=== PATIENT | female | born 1985 | race African-American/Black ===

== ENCOUNTER → 2024-12-30 15:47 | Outpatient (CLI) | payer OTHER, SELFPAY | PROVIDERS: Visit Provider Chiropractor | DX: R30.0 Dysuria (principal); N89.8 Other specified noninflammatory disorders of vagina | CPT/HCPCS: 87086; 87210 ==

== ENCOUNTER 2025-01-26 17:28 | Emergency (ER) | payer OTHER, SELFPAY ==
[2025-01-26 17:37] VITALS: BP 181/81; PULSE 88; RESP 18; TEMP 36.4; O2SAT 100; BMI 34.7
[2025-01-26 18:18] LABS: Hematocrit 24.6 % (36-46); Hemoglobin 7.5 g/dL (12.0-16.0); Lymphocytes Absolute Auto 3000 /uL (1100-4500); Mean Corpuscular HGB Conc 30.6 % (30-36); Mean Corpuscular Hemoglobin 15.6 PG (26-34); Mean Corpuscular Volume 50.9 fL (80-100); Platelet Count 464 X10^3/uL (150-400)
[2025-01-26 18:20] LABS: Add Manual Diff / Slide Review SLIDE REVIEW
[2025-01-26 18:23] LABS: Alanine Aminotransferase 15 IU/L (<35); Albumin 4.7 g/dL (3.5-5.0); Albumin Globulin Ratio 1.1 (1.0-2.8); Alkaline Phosphatase 74 U/L (38-126); Blood Urea Nitrogen 9 mg/dL (7-17); Calcium 8.9 mg/dL (8.4-10.2); Carbon Dioxide 18 mmol/L (22-32); Chloride 102 mmol/L (98-107); Estimated Glomerular Filt Rate > 60 mL/min (>60); Globulin 4.3 g/dL (1.7-4.1); Glucose 377 mg/dL (70-99); HEMOLYSIS < 15 (0-50); Potassium 3.4 mmol/L (3.4-5.1); Sodium 132 mmol/L (137-145); Total Protein 9.0 g/dL (6.3-8.2)
[2025-01-26 18:30] LABS: Ketones (Beta-Hydroxybutyrate) 0.24 mmol/L (<0.27)
[2025-01-26 18:31] LABS: Hemoglobin A1C% w Est Avg Glu 10.6 % (4.0-6.0)
[2025-01-26 18:32] LABS: Base Excess VBG -3.3 mmol/L (0-4); HCO3 VBG 21 mmol/L (24-28); Oxygen Saturation VBG 58 % (70-75); PCO2 VBG 33.6 mmHg (45-50); PO2 VBG 30 mmHg (35-45); Total CO2 VBG 20 mmol/L (24-29); pH VBG 7.41 (7.33-7.43)
[2025-01-26] MEDS: INSULIN REGULAR 100 UNIT/ML 3 ML VIAL 10 UNIT IV (18:33)
[2025-01-26 18:42] LABS: Anisocytosis 2+; Microcytosis 3+; Target Cells 1+
--- NOTE | 2025-01-26 18:43 | ED_ITS ---
HPI - Recheck/Abnormal Lab/Rx
--- NOTE | 2025-01-26 18:43 | ED.RECABL ---
HPI - Recheck/Abnormal Lab/Rx General Chief Complaint: Recheck/Abnormal Lab/Rx Stated Complaint: high blood sugar Time Seen by Provider: 01/26/25 18:07 Source: patient Mode of arrival: Ambulatory History of Present Illness HPI narrative: 39-year-old female with recent multiple urinary tract infections that have not cleared up and at walk-in clinic for which glucose was detected sent over here for further evaluation. Patient has never been diagnosed with diabetes and has had increased thirst and increased urination recently also. Patient denies any abdominal pain, nausea, vomiting, weight loss, or increased thirst. Other than what is stated 14 point review of systems negative. Related Data Previous Rx's ?Medication ?Instructions ?Recorded fluconazole 150 mg tablet 150 mg PO Q3D 2 doses #2 tabs 12/30/24 Allergies Allergy/AdvReac Type Severity Reaction Status Date / Time No Known Drug Allergies Allergy Verified 01/26/25 16:38 Review of Systems Review of Systems ROS Unobtainable: All systems reviewed & are unremarkable except as noted in HPI and below Patient History Smoking Status: Never smoker Exam Narrative Exam Narrative: GENERAL: [39] year old patient appears stated age. Well-developed patient, in mild distress. HEAD: Atraumatic. Normocephalic. EYES: Pupils equal round and reactive. Extraocular motions intact. No scleral icterus. No injection or drainage. ENT: Nose without bleeding, purulent drainage. Throat without erythema, tonsillar hypertrophy or exudate. Airway patent. NECK: Trachea midline. Non tender CARDIOVASCULAR: Regular rate and rhythm without murmurs, gallops, or rubs. RESPIRATORY: Clear to auscultation. Breath sounds equal bilaterally. No wheezes, rales, or rhonchi. GASTROINTESTINAL: Abdomen soft, non-tender, nondistended. EXTREMITIES: No edema or joint tenderness. BACK: Nontender without deformity or crepitance. No flank tenderness. NEURO: AOx3. SKIN: No rash or erythema of visible areas Initial Vital Signs Initial Vital Signs: Vital Signs Temperature 97.6 F 01/26/25 17:37 Pulse Rate 88 01/26/25 17:37 Respiratory Rate 18 01/26/25 17:37 Blood Pressure 181/81 H 01/26/25 17:37 Pulse Oximetry 100 01/26/25 17:37 Oxygen Delivery Method Room Air 01/26/25 17:37 Course Orders Ordered: ED Orders 01/26/25 17:52 CBC Auto Diff [Complete Blood Count AUTO DIFF] Stat Comprehensive Metabolic Panel Stat Hemoglobin A1C% w Est Avg Glu Stat Ketones (Beta-Hydroxybutyrate) Stat 01/26/25 17:59 VBG [Venous Blood Gas] STAT 01/26/25 18:25 Venous Blood Gas Routine Sodium Chloride (Normal Saline 0.9%) 2,000 mls @ 1,000 mls/hr IV NOW ONE Stop: 01/26/25 20:14 Discontinued Medications Insulin Human Regular (Insulin Regular 100 Unit/Ml 3 Ml Vial) 10 unit IV NOW ONE Stop: 01/26/25 18:06 Last Admin: 01/26/25 18:33 Dose: 8 unit Documented By: MAYELA Co-signed By: ANNA Vital Signs Vital signs: Vital Signs - 8 hr 01/26/25 17:37 Temperature 97.6 F Pulse Rate 88 Respiratory Rate 18 Blood Pressure 181/81 H Pulse Oximetry 100 Oxygen Delivery Method Room Air MDM - Recheck/Abnormal Lab/Rx Lab Data 01/26/25 17:52 01/26/25 17:52 Labs: Lab Results 01/26/25 01/26/25 Range/Units 17:52 18:25 WBC 11.2 H (4.5-11.0) X10^3/uL RBC 4.83 (4.0-5.2) X10^6/uL Hgb 7.5 L (12.0-16.0) g/dL Hct 24.6 L (36-46) % MCV 50.9 L (80-100) fL MCH 15.6 L (26-34) PG MCHC 30.6 (30-36) % RDW 19.4 H (11.6-14.8) % Plt Count 464 H (150-400) X10^3/uL Neut % (Auto) 62.2 (50-75) % Lymph % (Auto) 26.8 (25-40) % Logan % (Auto) 7.6 (3-14) % Eos % (Auto) 2.3 (2-4) % Baso % (Auto) 1.1 (0-2) % Neut # (Auto) 7000 (0455-0611) /uL Lymph # (Auto) 3000 (5338-4665) /uL Logan # (Auto) 800 (0-900) /uL Eos # (Auto) 300 (0-450) /uL Baso # (Auto) 100 (0-100) /uL RBC Morphology See below Anisocytosis 2+ H Microcytosis 3+ H Target Cells 1+ H VBG pH 7.41 (7.33-7.43) VBG pCO2 33.6 L (45-50) mmHg VBG pO2 30 L (35-45) mmHg VBG HCO3 21 L (24-28) mmol/L VBG Total CO2 20 L (24-29) mmol/L VBG O2 Saturation 58 L (70-75) % VBG Base Excess -3.3 L (0-4) mmol/L Sodium 132 L (137-145) mmol/L Potassium 3.4 (3.4-5.1) mmol/L Chloride 102 (98-107) mmol/L Carbon Dioxide 18 L (22-32) mmol/L BUN 9 (7-17) mg/dL Creatinine 0.53 (0.52-1.04) mg/dL Estimated GFR > 60 (>60) mL/min BUN/Creatinine Ratio 17.0 (6-22) Glucose 377 H (70-99) mg/dL POC Whole Bld Glucose 304 H (70-99) mg/dL Hemoglobin A1c 10.6 H (4.0-6.0) % Calcium 8.9 (8.4-10.2) mg/dL Total Bilirubin 0.4 (0.2-1.3) mg/dL AST 21 (14-36) IU/L ALT 15 (<35) IU/L Alkaline Phosphatase 74 (38-126) U/L Total Protein 9.0 H (6.3-8.2) g/dL Albumin 4.7 (3.5-5.0) g/dL Globulin 4.3 H (1.7-4.1) g/dL Albumin/Globulin Ratio 1.1 (1.0-2.8) Ketones 0.24 (<0.27) mmol/L MDM Narrative Medical decision making narrative: Vital signs, nurse triage note, medication list, previous ER visits, and all imaging studies reviewed. Patient given normal saline 1 L bolus x2 and 8 units of Regular insulin here. WBC 11.2 hemoglobin 7.5 hematocrit 24.6 platelets 464 VBG pH 7.4 pCO2 33.6 bicarb 21 base excess -3.3 O2 sat 58 L sodium 132 potassium 3.4 chloride 102 CO2 18 BUN 9 creatinine 0.53 glucose 377 [place] A1c 10.6 ketones 0.24. New onset diabetes sent home on Lantus and Humalog and to get established with PCP. Discharge Plan Departure Clinical Impression: New onset type 2 diabetes mellitus Anemia Qualifiers: Anemia type: iron deficiency Prescriptions: No Action fluconazole 150 mg tablet 150 mg PO Q3D Qty: 2 0RF Rx Instructions: may repeat second dose 72 hrs after first dose if symptoms persist
[2025-01-26 19:06] VITALS: PULSE 91; O2SAT 100
[2025-01-26 19:30] VITALS: BP 146/69; PULSE 95; RESP 16; O2SAT 100
[2025-01-26] MEDS: SODIUM CHLORIDE 0.9% 2,000 ML 1000 ML IV (19:56)
[2025-01-26 20:00] VITALS: BP 154/71; PULSE 91; O2SAT 100
== END 2025-01-26 20:14 | disposition home or self-care (01) ==
PROVIDERS: Emergency Provider Family Medicine
DX: D64.9 Anemia, unspecified (principal); E11.9 Type 2 diabetes mellitus without complications
CPT/HCPCS: 36415; 80053; 82009; 82805; 82962; 83036; 85025; 96374; 99284; J7030